=== PATIENT | male | born 1960 | race Caucasian/White ===

== ENCOUNTER 2018-06-15 13:50 | Inpatient (IN) | payer OTHER, MEDICAID ==
[~2018-06-15] VITALS: Ht 170.2 cm; Wt 78.5 kg
[2018-06-15 13:57] VITALS: Ht 170.2 cm; Wt 78.5 kg
[2018-06-15 14:50] LABS: BASOPHIL % 1.1 % (0-2); PLATELET COUNT 263 x10^3mcL (130-400)
[2018-06-15 14:53] LABS: RED CELL DISTRIBUTION WIDTH 16.4 % (11.5-14.5)
[2018-06-15 15:05] LABS: BILIRUBIN TOTAL 0.4 mg/dL (0.20-1.00); CALCIUM 7.9 mg/dL (8.5-10.1); CARBON DIOXIDE 19.9 mmol/L (21-32); POTASSIUM SERUM 4.2 mmol/L (3.5-5.1); TOTAL PROTEIN, SERUM 6.3 g/dL (6.4-8.2)
[2018-06-15 15:06] LABS: ALBUMIN 2.8 g/dL (3.4-5.0)
[2018-06-15 15:08] LABS: CREATININE SERUM 11.1 mg/dL (0.7-1.3)
[2018-06-15 16:58] VITALS: BP 224/127
[2018-06-15 17:06] LABS: CHOLESTEROL/HDL RATIO 3.2; MAGNESIUM 2.3 mg/dL (1.8-2.4); PHOSPHOROUS 6.3 mg/dL (2.5-4.9)
[2018-06-15 17:14] LABS: T3 TOTAL 0.5 ng/mL
[2018-06-15 17:47] LABS: FREE T4 1.09 ng/dL (0.76-1.46); FREE THYROXINE INDEX 2.3 ug/dL (1.4-4.5); T4(THYROXINE) 5.9 ug/dL (4.7-13.3)
[2018-06-15 19:01] VITALS: BP 195/96
[2018-06-15 20:45] VITALS: BP 176/90
[2018-06-16 05:22] VITALS: BP 155/78
[2018-06-16 08:58] VITALS: BP 162/82
[2018-06-16 13:05] VITALS: BP 155/85
[2018-06-16 15:48] LABS: BASOPHIL % 1.3 % (0-2); PLATELET COUNT 215 x10^3mcL (130-400)
[2018-06-16 16:01] LABS: CALCIUM 7.3 mg/dL (8.5-10.1); CARBON DIOXIDE 22.8 mmol/L (21-32); POTASSIUM SERUM 4.1 mmol/L (3.5-5.1)
[2018-06-16 16:04] LABS: CREATININE SERUM 11.1 mg/dL (0.7-1.3)
[2018-06-16 16:13] LABS: RED CELL DISTRIBUTION WIDTH 16.6 % (11.5-14.5)
[2018-06-16 17:36] VITALS: BP 151/79
[2018-06-16 19:27] LABS: PHOSPHOROUS 6.8 mg/dL (2.5-4.9)
[2018-06-16 19:30] LABS: microscopic required? YES; urine erythrocyte 1+ (NEGATIVE)
[2018-06-16 19:39] LABS: AMPHETAMINE QUAL UR NONE DETECTED (See below)
[2018-06-16 22:32] VITALS: BP 169/80
[2018-06-17 01:30] VITALS: BP 173/89
[2018-06-17 04:58] VITALS: BP 164/73
[2018-06-17 06:21] LABS: CALCIUM 7.1 mg/dL (8.5-10.1); CARBON DIOXIDE 28.5 mmol/L (21-32); MAGNESIUM 1.9 mg/dL (1.8-2.4); POTASSIUM SERUM 3.3 mmol/L (3.5-5.1)
[2018-06-17 06:34] LABS: BASOPHIL % 1.2 % (0-2); PLATELET COUNT 192 x10^3mcL (130-400); RED CELL DISTRIBUTION WIDTH 16.6 % (11.5-14.5)
[2018-06-17 08:30] VITALS: BP 165/84
[2018-06-17 12:19] VITALS: BP 143/73
[2018-06-17 17:53] VITALS: BP 167/60
[2018-06-17 21:27] VITALS: BP 165/80
[2018-06-18] VITALS (7 sets, daily range): BP systolic 133–164; BP diastolic 62–83
[2018-06-18 07:19] LABS: BASOPHIL % 0.8 % (0-2); PLATELET COUNT 196 x10^3mcL (130-400)
[2018-06-18 07:26] LABS: RED CELL DISTRIBUTION WIDTH 16.5 % (11.5-14.5)
[2018-06-18 07:59] LABS: CALCIUM 7.2 mg/dL (8.5-10.1); CARBON DIOXIDE 27.4 mmol/L (21-32); MAGNESIUM 1.7 mg/dL (1.8-2.4); PHOSPHOROUS 3.9 mg/dL (2.5-4.9); POTASSIUM SERUM 3.7 mmol/L (3.5-5.1)
[2018-06-18 08:06] LABS: CREATININE SERUM 5.4 mg/dL (0.7-1.3)
[2018-06-18 09:17] LABS: calcium (part of PTHIC) 7.6 mg/dL (8.6-10.2)
[2018-06-19] VITALS (7 sets, daily range): BP systolic 129–178; BP diastolic 80–88
[2018-06-19 06:59] LABS: BASOPHIL % 1.1 % (0-2); PLATELET COUNT 202 x10^3mcL (130-400)
[2018-06-19 07:05] LABS: RED CELL DISTRIBUTION WIDTH 16.1 % (11.5-14.5)
[2018-06-19 07:18] LABS: CALCIUM 8.1 mg/dL (8.5-10.1); CARBON DIOXIDE 26.1 mmol/L (21-32); MAGNESIUM 1.9 mg/dL (1.8-2.4); PHOSPHOROUS 4.7 mg/dL (2.5-4.9)
[2018-06-19 07:26] LABS: CREATININE SERUM 6.3 mg/dL (0.7-1.3)
[2018-06-19] MEDS ORDERED: PRO10I SQ (08:22)
[2018-06-19] MEDS ORDERED: CAT0.1 PO (08:23)
[2018-06-19] MEDS ORDERED: APR25 PO (08:23)
[2018-06-19] MEDS ORDERED: PHOS PO (08:24)
[2018-06-19] MEDS ORDERED: ADA30 PO (08:26)
[2018-06-19] MEDS ORDERED: FLOMAX0.4 MG (18:23)
[2018-06-20 05:24] VITALS: BP 177/88
[2018-06-20 06:08] LABS: PLATELET COUNT 202 x10^3mcL (130-400)
[2018-06-20 06:51] LABS: CALCIUM 8.3 mg/dL (8.5-10.1); CARBON DIOXIDE 26.7 mmol/L (21-32); MAGNESIUM 1.7 mg/dL (1.8-2.4); PHOSPHOROUS 3.6 mg/dL (2.5-4.9); POTASSIUM SERUM 3.9 mmol/L (3.5-5.1)
[2018-06-20 06:54] LABS: RED CELL DISTRIBUTION WIDTH 16.1 % (11.5-14.5)
[2018-06-20 06:59] LABS: CREATININE SERUM 4.5 mg/dL (0.7-1.3)
[2018-06-20 09:11] VITALS: BP 176/83
[2018-06-20 11:14] LABS: COMPLEMENT C3 106 mg/dL (82-167)
[2018-06-20] MEDS ORDERED: ADA30 PO (11:18)
[2018-06-20] MEDS ORDERED: CAT0.1 PO (11:18)
== END 2018-06-20 13:45 | disposition home health service (06) | DRG 682 ==
LOC: ED 13:50 → DU 15:45
PROVIDERS: Emergency Medicine; Family Medicine; Internal Medicine; Specialist
PROC: 05HM33Z Insertion of Infusion Device into Right Internal Jugular Vein, Percutaneous Approach (ICD-10-PCS; principal; 2018-06-16)
PROC: B543ZZA Ultrasonography of Right Jugular Veins, Guidance (ICD-10-PCS; 2018-06-16)
DX: I12.0 Hypertensive chronic kidney disease with stage 5 chronic kidney disease or end stage renal disease (principal); E43 Unspecified severe protein-calorie malnutrition; N17.0 Acute kidney failure with tubular necrosis; N18.5 Chronic kidney disease, stage 5; I16.0 Hypertensive urgency; E11.22 Type 2 diabetes mellitus with diabetic chronic kidney disease; D64.9 Anemia, unspecified; K21.9 Gastro-esophageal reflux disease without esophagitis; E83.39 Other disorders of phosphorus metabolism; E83.51 Hypocalcemia; E83.42 Hypomagnesemia; E87.8 Other disorders of electrolyte and fluid balance, not elsewhere classified; Z68.26 Body mass index [BMI] 26.0-26.9, adult; Z86.73 Personal history of transient ischemic attack (TIA), and cerebral infarction without residual deficits
CPT/HCPCS: 83880; 84439; 86480; 97110-GP; 97116-GP; 97530-GP; A4301; J0690; J0885-EC; J1170; J1642; J1644; J2001; J2250; J2270; J3010; J3490; J7030; J7060; Q0092

== ENCOUNTER 2018-08-29 05:17 | Emergency (ER) | payer OTHER, MEDICAID ==
[~2018-08-29] VITALS: Ht 172.7 cm; Wt 60.4 kg
[~2018-08-29 05:17] MED LIST: ADA30 PO; APR25 PO; CAT0.1 PO; FLOMAX0.4 MG; PHOS PO; PRO10I SQ
[2018-08-29 05:24] VITALS: Ht 172.7 cm; Wt 60.4 kg
[2018-08-29 07:12] VITALS: BP 176/126
== END 2018-08-29 07:01 | disposition home or self-care (01) ==
LOC: ED 05:17
DX: R30.0 Dysuria (principal); I12.9 Hypertensive chronic kidney disease with stage 1 through stage 4 chronic kidney disease, or unspecified chronic kidney disease; N18.9 Chronic kidney disease, unspecified; Z98.890 Other specified postprocedural states; Z46.6 Encounter for fitting and adjustment of urinary device

== ENCOUNTER 2018-10-14 12:08 | Emergency (ER) | payer OTHER, MEDICAID ==
[~2018-10-14] VITALS: Ht 172.7 cm; Wt 64.9 kg
[2018-10-14 12:27] VITALS: Ht 172.7 cm; Wt 64.9 kg
[2018-10-14 13:47] LABS: ALBUMIN 3.8 g/dL (3.4-5.0); BILIRUBIN TOTAL 0.51 mg/dL (0.20-1.00); CALCIUM 8.8 mg/dL (8.5-10.1); CARBON DIOXIDE 23.7 mmol/L (21-32); POTASSIUM SERUM 5.1 mmol/L (3.5-5.1); TOTAL PROTEIN, SERUM 7.8 g/dL (6.4-8.2)
[2018-10-14 14:40] LABS: BASOPHIL % 0.7 % (0-2); PLATELET COUNT 218 x10^3mcL (130-400)
[2018-10-14 14:41] LABS: RED CELL DISTRIBUTION WIDTH 17.3 % (11.5-14.5)
[2018-10-14 15:56] VITALS: BP 148/80
== END 2018-10-14 15:56 | disposition home or self-care (01) ==
LOC: ED 12:08
PROVIDERS: Emergency Medicine
DX: T82.898A Other specified complication of vascular prosthetic devices, implants and grafts, initial encounter (principal); N18.9 Chronic kidney disease, unspecified; Z99.2 Dependence on renal dialysis
CPT/HCPCS: 96523; J1644; J2997; Q0092